=== PATIENT | female | born 1950 | race Caucasian/White ===

== ENCOUNTER 2020-05-19 07:17 | Day surgery (SDC) | payer OTHER, BC ==
[2020-05-13 16:57] VITALS: BMI 24.1
[2020-05-19] MEDS ORDERED: LIDOCAINE HCL/PF 2% SDV 5ML VIAL ONE (07:44)
[2020-05-19] MEDS ORDERED: PROPOFOL 20 ML ONE ×3 (07:44)
[2020-05-19 08:45] VITALS: TEMP 97.8
[2020-05-19 09:24] VITALS: BP 129/74; PULSE 78
== END 2020-05-19 09:38 | disposition home or self-care (01) ==
LOC: FASU-ENDO 07:17
PROVIDERS: ATTEND Internal Medicine Gastroenterology
PROC: 0DJD8ZZ Inspection of Lower Intestinal Tract, Via Natural or Artificial Opening Endoscopic (ICD-10-PCS; principal; 2020-05-19 08:27)
DX: Z12.11 Encounter for screening for malignant neoplasm of colon (principal); K57.30 Diverticulosis of large intestine without perforation or abscess without bleeding